=== PATIENT | female | born 1965 | race Caucasian/White ===

== ENCOUNTER 2017-02-10 11:12 | Observation (INO) | payer OTHER ==
[~2017-02-10] VITALS: Ht 175.3 cm; Wt 96.0 kg
[2017-02-10 11:23] VITALS: BP 183/122; PULSE 102; RESP 16; O2SAT 99
--- NOTE | 2017-02-10 11:26 | PD ---
HPI Chief Complaint: Fall Time Seen by Provider: 11:21 Travel History International Travel<30 days: No Contact w/Intl Traveler<30days: No History of Present Illness HPI 51-year-old female presents to the ED for evaluation of left-sided facial, left shoulder and left knee pain after mechanical fall. This happened just prior to arrival. Patient states that she was out walking, tripped and landed on the sidewalk, striking her head. She is unsure if she lost consciousness. She's been ambulatory since the accident. Pain rated 8/10, constant, no alleviating or exacerbating factors reported. The patient denies headache, dizziness, vision changes, neck pain, limitations to range of motion of the extremities. She is unsure of the date of her last tetanus immunization. No treatment attempted at home. [facility] Social History Tobacco Use: No Allergies-Medications (Allergen,Severity, Reaction): Coded Allergies: amoxicillin (Verified Allergy, Unknown, 02/10/17) Reported Meds & Prescriptions Reported Meds & Active Scripts Active Reported Claritin (Loratadine) 10 Mg Cap 10 Mg PO DAILY Plaquenil (Hydroxychloroquine Sulfate) 200 Mg Tab 400 Mg PO DAILY Take with food Cetirizine (Cetirizine HCl) 10 Mg Tab 10 Mg PO DAILY Amitriptyline (Amitriptyline HCl) 25 Mg Tab 25 Mg PO HS Fish Oil ([place]-3 Fatty Acids) 60 Mg-90 Mg-500 Mg Cap Flexeril (Cyclobenzaprine HCl) 10 Mg Tab 10 Mg PO TID Review of Systems Except as stated in HPI: all other systems reviewed are Neg Physical Exam Narrative GENERAL: Well-nourished, well-developed white female in no acute distress. A&O 4 SKIN: Warm and dry. Superficial abrasion of the left shoulder. Abrasion of the left knee. Edema and ecchymosis surrounding the left eye. Thorough evaluation reveals no edema, ecchymosis, abrasion, or laceration of the skin. HEAD: Normocephalic. Atraumatic. No raccoon eyes or mckeon sign. Tender to palpation of the left orbit. No tenderness to palpation of the skull. No bony step-offs. No malocclusion of the teeth. EYES: No scleral icterus. No injection or drainage. PERRLA. EOMI. ENT: Pearly mckinney tympanic membrane is bilaterally. Nasal mucosa is moist. Oropharynx without erythema, edema or exudate. NECK: Supple, trachea midline. No JVD or lymphadenopathy. No midline tenderness to palpation. Patient retains full, active, painless range of motion of the neck. CARDIOVASCULAR: Regular rate and rhythm without murmurs, gallops, or rubs. 2+ DP and radial pulses bilaterally. RESPIRATORY: Breath sounds clear and equal bilaterally. No accessory muscle use. GASTROINTESTINAL: Abdomen soft, non-tender, nondistended. + Bowel sounds MUSCULOSKELETAL: No cyanosis, or edema. Tender to palpation of the acromioclavicular joint of the left shoulder. Pain with attempted ROM. Good grid trimmer strength. Tender to palpation of the left patella. No patellar balloting noted. Patient is able to flex the left knee beyond 90 and extend the knee to 0. No other tenderness to palpation or limitations to range of motion of the joints of the upper and lower extremities. NEUROLOGICAL: Awake and alert. Cranial nerves II through XII intact. Motor and sensory grossly within normal limits. 5/5 muscle strength in all muscle groups. Normal speech. BACK: Nontender without obvious deformity. No CVA tenderness. No midline tenderness. Data Data Last Documented VS Vital Signs Date Time Temp Pulse Resp B/P (MAP) Pulse Ox O2 Delivery O2 Flow Rate FiO2 02/10/17 13:40 98.0 84 18 178/108 (131) 96 02/10/17 11:32 Room Air Orders Orders Ct Brain W/O Iv Contrast(Rout) (02/10/17 11:16) Ct Facial Bones W/O Iv Cont (02/10/17 11:16) Knee, Complete (4vws) (02/10/17 11:16) Shoulder, Complete (>2vws) (02/10/17 11:16) Ice/Cold Pack (02/10/17 11:16) Tetanus/Diphtheria Tox Adult (Tetanus/Di (02/10/17 11:30) Ondansetron Odt (Zofran Odt) (02/10/17 11:30) Acetamin-Hydrocod 325-10 Mg ([place] 10-32 (02/10/17 11:30) Wound Care (02/10/17 11:16) Iv Access Insert/Monitor (02/10/17 13:45) Dexamethasone Inj (Decadron Inj) (02/10/17 13:45) Cefazolin Inj (Ancef Inj) (02/10/17 14:00) Morphine Inj (Morphine Inj) (02/10/17 14:15) Admit Order (Ed Use Only) (02/10/17 14:16) Precautions (02/10/17 14:17) MDM Medical Decision Making Medical Screen Exam Complete: Yes Emergency Medical Condition: Yes Differential Diagnosis Contusion versus abrasion versus orbital fracture versus skull fracture versus ICH versus musculoskeletal pain versus patellar fracture versus shoulder separation versus other Narrative Course 51-year-old female presents to the ED for evaluation of left-sided facial, left shoulder and left knee pain after mechanical fall. This happened just prior to arrival. Patient states that she was out walking, tripped and landed on the sidewalk, striking her head. Questionable LOC. She's been ambulatory since the accident. The patient denies headache, dizziness, vision changes, neck pain , limitations to range of motion of the extremities. She is unsure of the date of her last tetanus immunization. Patient is tachycardic and hypertensive on presentation. Physical exam reveals significant periorbital edema and ecchymosis. PERRLA, EOMI. Gaze is symmetric. There are superficial abrasions of the left knee and shoulder with some associated TTP. Tetanus was updated. Ice packs were applied. Patient was administered PO Lortab and Zofran. CT of the facial bones reveals left orbital blowout fracture by radiology read. CT brain, XR left shoulder and knee unremarkable. I spoke with Dr. Gonzales, maxillofacial surgeon, who recommends that the patient be started on Decadron, IV antibiotics, admitted. He'll see the patient this evening and plans surgery tomorrow morning. I discussed this plan with the patient who was initially resistant. However, after a few moments with her she decided to stay. IV was established. Patient was administered steroids, Ancef. I spoke with the residents who agree to accept the patient to the medicine service under Dr. Lopez. Please see medicine notes for disposition. Anamaria Nathan Feb 10, 2017 11:26
[2017-02-10] MEDS ORDERED: ACETAMINOPHEN/HYDROcodone 325 MG/10 MG TAB PO ONE (11:30)
[2017-02-10] MEDS ORDERED: TETANUS/DIPHTHERIA TOXOID ADULT 0.5 ML VIAL IM ONE (11:30)
[2017-02-10] MEDS ORDERED: ONDANSETRON ODT 4 MG TAB PO ONE (11:30)
[2017-02-10 11:32] VITALS: BP 183/122; PULSE 102; RESP 16; O2SAT 99
[2017-02-10] MEDS ORDERED: FISH500C (11:50)
[2017-02-10] MEDS ORDERED: CYCL10TA PO (11:50)
[2017-02-10] MEDS ORDERED: PLAQ200T PO (11:50)
[2017-02-10] MEDS ORDERED: CETI10 PO (11:50)
[2017-02-10] MEDS ORDERED: AMIT25TA9 PO (11:50)
[2017-02-10] MEDS ORDERED: CLAR10CA3 PO (11:50)
--- NOTE | 2017-02-10 12:30 | RADRPT ---
EXAM DATE/TIME: 02/10/2017 12:10 [facility] COMPARISON: No previous studies available for comparison. INDICATIONS : Patient fell on left side of face RADIATION DOSE: 40.60 CTDIvol (mGy) MEDICAL HISTORY : None SURGICAL HISTORY : None. ENCOUNTER: Initial ACUITY: 1 day PAIN SCALE: 5/10 LOCATION: Left facial TECHNIQUE: Multiple contiguous axial images were obtained of the head. Using automated exposure control and adj ustment of the mA and/or kV according to patient size, radiation dose was kept as low as reasonably a chievable to obtain optimal diagnostic quality images. DICOM format image data is available electro nically for review and comparison. FINDINGS: CEREBRUM: The ventricles are normal for age. No evidence of midline shift, mass lesion, hemorrhage or acute in farction. No extra-axial fluid collections are seen. POSTERIOR FOSSA: The cerebellum and brainstem are intact. The 4th ventricle is midline. The cerebellopontine angle i s unremarkable. EXTRACRANIAL: Left-sided periorbital and supraorbital soft tissue swelling and hematoma are noted. Soft tissue air is identified in the extraconal space along the left lamina papyracea. The visualized portion of the left maxillary sinus is opacified with fluid. Nasal bone is grossly intact. SKULL: The calvaria is intact. No evidence of skull fracture. CONCLUSION: 1. No evidence of acute intracranial process. 2. Extraconal gas identified within the left orbit with associated opacification of the left maxillar y sinus which may indicate the presence of an orbital blowout fracture. Joe Wallace MD on February 10, 2017 at 12:19 Board Certified Radiologist. This report was verified electronically.
--- NOTE | 2017-02-10 12:32 | RADRPT ---
EXAM DATE/TIME: 02/10/2017 11:46 [facility] COMPARISON: No previous studies available for comparison. INDICATIONS : Fell today, pain and limited movement left shoulder, abrasion anterior left shoulder MEDICAL HISTORY : None. SURGICAL HISTORY : None. ENCOUNTER: Initial ACUITY: 1 day PAIN SCORE: 10/10 LOCATION: Left shoulder FINDINGS: Multiple view examination of the left shoulder demonstrates no evidence of fracture or dislocation. The glenohumeral and acromioclavicular joints are maintained. There is normal range of motion betwee n internal and external rotation. Bony mineralization is normal. CONCLUSION: No acute osseous injury. Quang Costa MD on February 10, 2017 at 12:30 Board Certified Radiologist. This report was verified electronically.
--- NOTE | 2017-02-10 12:35 | RADRPT ---
EXAM DATE/TIME: 02/10/2017 11:51 [facility] COMPARISON: No previous studies available for comparison. INDICATIONS : Fell today, abrasion left anterior knee, pain only on anterior side of left knee MEDICAL HISTORY : None. SURGICAL HISTORY : None. ENCOUNTER: Initial ACUITY: 1 day PAIN SCORE: 6/10 LOCATION: Left knee FINDINGS: Four view examination of the left knee demonstrates no evidence of fracture or dislocation. Bony min eralization is normal. The articular surfaces are intact. The suprapatellar soft tissues have a nor mal configuration. CONCLUSION: Negative exam. No fracture or effusion. Quang Costa MD on February 10, 2017 at 12:31 Board Certified Radiologist. This report was verified electronically.
--- NOTE | 2017-02-10 12:37 | RADRPT ---
EXAM DATE/TIME: 02/10/2017 12:10 [facility] COMPARISON: No previous studies available for comparison. INDICATIONS : Patient fell on left side of face RADIATION DOSE: 49.35 CTDIvol (mGy) MEDICAL HISTORY : None SURGICAL HISTORY : None. ENCOUNTER: Initial ACUITY: 1 day PAIN SCORE: 8/10 LOCATION: Left facial TECHNIQUE: Volumetric scanning of the facial bones was performed. Using automated exposure control and adjustme nt of the mA and/or kV according to patient size, radiation dose was kept as low as reasonably achiev able to obtain optimal diagnostic quality images. DICOM format image data is available electronicall y for review and comparison. FINDINGS: There is a left orbital blowout fracture with depression of small orbital floor fracture fragments sl ightly toward the underlying maxillary sinus. There is blood within the sinus. There is no evidence o f entrapment of orbital contents. The orbital rim is intact. The globe is intact. Moderate periorbita l and supraorbital soft tissue swelling. Contralateral right orbit is intact and unremarkable. The facial bones are otherwise intact. Mandible and temporomandibular joints are unremarkable. CONCLUSION: Left orbital floor blowout fracture Noe Espinal MD on February 10, 2017 at 12:32 Board Certified Radiologist. This report was verified electronically.
[2017-02-10 13:40] VITALS: BP 178/108; PULSE 84; RESP 18; TEMP 98; O2SAT 96
[2017-02-10] MEDS ORDERED: DEXAMETHASONE SOD PHOS 4 MG/ML VIAL IV PUSH ONE (13:45)
[2017-02-10] MEDS ORDERED: MORPHINE SULFATE 4 MG/ML INJ IV PUSH ONE (14:15)
--- NOTE | 2017-02-10 14:19 | HHI.HP ---
[facility] Service Family Medicine Primary Care Physician Zechariah Boucher MD Admission Diagnosis left orbital blowout fracture Diagnoses: International Travel<30 Days: No Contact w/Intl Traveler<30days: No Known Affected Area: No History of Present Illness Patient is a very pleasant 51 year old woman here following a mechanical fall while walking outside earlier today. She is found to have a left orbital floor blowout fracture on maxillofacial CT. She states she was outside walking on the sidewalk and tripped and land on the concrete. She states she believes the first thing that hit the ground was her left knee followed by her left shoulder and left-sided face. She denies LOC. She denies issues with her gait prior to the mechanical fall or any other focal neuro deficit. Denies issues with her vision prior to the fall. She states she actually did not have much pain around her left orbit following the fall. Currently she endorses 5/10 pain which she describes mostly as pressure. She denies headache. She is able to open her left eye and denies any blurry vision. Denies photosensitivity, floaters, or abnormalities with color vision or light perception. She denies any significant pain or discomfort of her left knee or shoulder. Denies restriction of ROM of left knee. Review of Systems Constitutional: DENIES: Fever Eyes: DENIES: Blurred vision, Diplopia, Photosensitivity, Double Vision Ears, nose, mouth, throat: DENIES: Ear Pain, Toothache Respiratory: DENIES: Cough, Sputum production, Shortness of breath Cardiovascular: DENIES: Chest pain Gastrointestinal: DENIES: Abdominal pain, Constipation, Diarrhea, Nausea, Vomiting Genitourinary: DENIES: Dysuria Neurologic: DENIES: Abnormal gait, Headache, Localized weakness, Paresthesias, Seizures, Poor Balance Past Family Social History Past Medical History SLE diagnosed about 3 years ago Allergies Past Surgical History Breast reduction surgery Bunionectomy Novasure ablation about 8 years ago Allergies: Coded Allergies: amoxicillin (Verified Allergy, Unknown, 02/10/17) Family History Father: Parkinsons, prostate cancer, HTN, still alive Mother: from lung cancer at ~56yo Social History Tobacco: never Etoh: denies Illicit drug use: denies Physical Exam Vital Signs Vital Signs Date Time Temp Pulse Resp B/P (MAP) Pulse Ox O2 Delivery O2 Flow Rate FiO2 02/10/17 13:40 98.0 84 18 178/108 (131) 96 02/10/17 11:32 102 16 183/122 (142) 99 Room Air 02/10/17 11:31 102 16 99 Room Air 02/10/17 11:23 102 16 183/122 (142) 99 Physical Exam GENERAL: NAD, lying comfortably in bed NEURO: Alert. Normal speech. facetor tested and intact. Motor grossly normal. Sensation intact throughout. 5/5 strength throughout. Gait not tested. SKIN: Warm and dry. Superficial abrasion measuring ~2-3cm located inferior to left patella, without drainage, pus, or bleeding. Smaller superficial abrasion along left anterior shoulder without active bleeding or drainage. HEAD: Normocephalic. Atraumatic. EYES: PERRL. EOMI. No scleral icterus. Significant ecchymoses involving left eyelid with significant edema, no fluctuance, bruising extending laterally into left forehead. Visual acuity tested, no deficits in vision. Peripheral vision intact in all thomas in bilateral eyes. ENT: No nasal drainage. Moist mucous membranes. No oral ulcers or lesions. NECK: Supple, trachea midline. No JVD or lymphadenopathy. CARDIOVASCULAR: Regular rate and rhythm without murmurs, rubs, or gallops. Peripheral pulses 2+. Capillary refill < 2 seconds. RESPIRATORY: Breath sounds clear to auscultation and equal bilaterally, without wheezes, rales, or rhonchi. No accessory muscle use. GASTROINTESTINAL: Abdomen soft, nontender, nondistended, normal BS. No organomegaly or masses. No rebound tenderness. No guarding. MUSCULOSKELETAL: No lower extremity edema. Normal range of motion. BACK: Nontender without obvious deformity. Imaging Last 72 hours Impressions Shoulder X-Ray 02/10/17 1116 Signed Impressions: Service Date/Time: Friday, February 10, 2017 11:46 - CONCLUSION: No acute osseous injury. Quang Costa MD Maxillofacial CT 02/10/17 1116 Signed Impressions: Service Date/Time: Friday, February 10, 2017 12:10 - CONCLUSION: Left orbital floor blowout fracture Noe Espinal MD Knee X-Ray 02/10/17 1116 Signed Impressions: Service Date/Time: Friday, February 10, 2017 11:51 - CONCLUSION: Negative exam. No fracture or effusion. Quang Costa MD Head CT 02/10/17 1116 Signed Impressions: Service Date/Time: Friday, February 10, 2017 12:10 - CONCLUSION: 1. No evidence of acute intracranial process. 2. Extraconal gas identified within the left orbit with associated opacification of the left maxillary sinus which may indicate the presence of an orbital blowout fracture. Joe Wallace MD Caprini VTE Risk Assessment Caprini VTE Risk Assessment: No/Low Risk (score <= 1) Caprini Risk Assessment Model Point Value = 1 Point Value = 2 Point Value = 3 Point Value = 5 Age 41-60 Minor surgery BMI > 25 kg/m2 Swollen legs Varicose veins or History of unexplained or recurrent spontaneous Oral contraceptives or hormone replacement Sepsis (< 1 month) Serious lung disease, including pneumonia (< 1 month) Abnormal pulmonary function Acute myocardial infarction Congestive heart failure (< 1 month) History of inflammatory bowel disease Medical patient at bed rest Age 61-74 Arthroscopic surgery Major open surgery (> 45 min) Laparoscopic surgery (> 45 min) Malignancy Confined to bed (> 72 hours) Immobilizing plaster cast Central venous access Age >= 75 History of VTE Family history of VTE Factor V Leiden Prothrombin [id number] Lupus anticoagulant Anticardiolipin antibodies Elevated serum homocysteine Heparin-induced thrombocytopenia Other congenital or acquired thrombophilia Stroke (< 1 month) Elective arthroplasty Hip, pelvis, or leg fracture Acute spinal cord injury (< 1 month) Prophylaxis Regimen Total Risk Factor Score Risk Level Prophylaxis Regimen 0-1 Low Early ambulation 2 Moderate Order ONE of the following: *Sequential Compression Device (SCD) *Heparin 5000 units SQ BID 3-4 Higher Order ONE of the following medications: *Heparin 5000 units SQ TID *Enoxaparin/Lovenox 40 mg SQ daily (WT < 150 kg, CrCl > 30 mL/min) *Enoxaparin/Lovenox 30 mg SQ daily (WT < 150 kg, CrCl > 10-29 mL/min) *Enoxaparin/Lovenox 30 mg SQ BID (WT < 150 kg, CrCl > 30 mL/min) AND/OR *Sequential Compression Device (SCD) 5 or more Highest Order ONE of the following medications: *Heparin 5000 units SQ TID (Preferred with Epidurals) *Enoxaparin/Lovenox 40 mg SQ daily (WT < 150 kg, CrCl > 30 mL/min) *Enoxaparin/Lovenox 30 mg SQ daily (WT < 150 kg, CrCl > 10-29 mL/min) *Enoxaparin/Lovenox 30 mg SQ BID (WT < 150 kg, CrCl > 30 mL/min) AND *Sequential Compression Device (SCD) Assessment and Plan Assessment and Plan 51 year old female being admitted with a left orbital floor blowout fracture following a mechanical fall. Code Status Full code Discussed Condition With dw Dr. Lopez Problem List: (1) Fracture of orbital floor ICD Codes: S02.30XA - Fracture of orbital floor, unspecified side, initial encounter for closed fracture Status: Acute Plan: - Maxillofacial CT showing left orbital floor blowout fracture - Will place consult for oromaxillofacial surgery, Dr. 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 Plan: Symptoms stable Continue home Plaquenil (3) Nutrition, metabolism, and development symptoms ICD Codes: R63.8 - Other symptoms and signs concerning food and fluid intake Status: Acute Plan: Fluids: as above, NS at 140 cc/hr at MN Electrolytes: WNL Nutrition: regular diet today, NPO after MN DVT ppx: b/l SCDs, holding chemical anticoagulation ahead of surgery tomorrow Physician Certification 2 Midnight Certification Type: Admission for Inpatient Services Order for Inpatient Services The services are ordered in accordance with Medicare regulations or non- Medicare payer requirements, as applicable. In the case of services not specified as inpatient-only, they are appropriately provided as inpatient services in accordance with the 2-midnight benchmark. Estimated LOS (days): 2 days is the estimated time the patient will need to remain in the hospital, assuming treatment plan goals are met and no additional complications. Post-Hospital Plan: Home Maverick Luis MD R2 Feb 10, 2017 14:19
[2017-02-10] MEDS ORDERED: SODIUM CHLORIDE 0.9% FLUSH 10 ML FLUSH IV FLUSH PRN (14:45)
[2017-02-10] MEDS ORDERED: NALOXONE HCL 0.4 MG/ML AMP IV PUSH PRN (14:45)
--- NOTE | 2017-02-10 14:55 | HHI.FPPN ---
Subjective Remarks Pt. seen and examined, discussed with Dr. Luis. This is a 51 yo female with lupus who was walking this a.m. and due to unsteadiness fell, sustaining a blow-out fracture of the left orbital floor, as well as abrasions left shoulder and left knee. No loss of consciousness. She takes Plaquenil, allergy meds including fluticasone, claritin and zyrtec. Significant seasonal allergies and is allergic to apples. She is originally from [place]. Her is with her. Please refer to H&P for this admission for additional past, family, social hx and ROS at the time of admission. Objective Vitals Vital Signs Date Time Temp Pulse Resp B/P (MAP) Pulse Ox O2 Delivery O2 Flow Rate FiO2 02/10/17 13:40 98.0 84 18 178/108 (131) 96 02/10/17 11:32 102 16 183/122 (142) 99 Room Air 02/10/17 11:31 102 16 99 Room Air 02/10/17 11:23 102 16 183/122 (142) 99 Imaging Last 24 hours Impressions Shoulder X-Ray 02/10/17 1116 Signed Impressions: Service Date/Time: Friday, February 10, 2017 11:46 - CONCLUSION: No acute osseous injury. Quang Costa MD Maxillofacial CT 02/10/17 1116 Signed Impressions: Service Date/Time: Friday, February 10, 2017 12:10 - CONCLUSION: Left orbital floor blowout fracture Noe Espinal MD Knee X-Ray 02/10/17 1116 Signed Impressions: Service Date/Time: Friday, February 10, 2017 11:51 - CONCLUSION: Negative exam. No fracture or effusion. Quang Costa MD Head CT 02/10/17 1116 Signed Impressions: Service Date/Time: Friday, February 10, 2017 12:10 - CONCLUSION: 1. No evidence of acute intracranial process. 2. Extraconal gas identified within the left orbit with associated opacification of the left maxillary sinus which may indicate the presence of an orbital blowout fracture. Joe Wallace MD Objective Remarks O. CONSTITUTIONAL/GEN: normally nourished, in some distress with pain from orbital fracture. EYES: Significant ecchymosis left upper lid. ENT: Mouth and pharynx normal. NECK: thyroid midline, carotids symmetrical. LUNGS: clear A-P, respiratory effort is normal. CARDIOVASCULAR: RR without murmur or gallop. No significant edema. GI/ABD: soft without masses, without organomegaly. BS + NEURO: No focal deficits. SKIN: color normal, no rashes noted. HEME/LYMPH: no bruising, petechia or significant adenopathy MUSC: Extremities are normal in appearance. PSYCH/MENTAL STATUS: Alert and oriented x 3. A/P Assessment and Plan 51 yo female with blowout fracture left orbital floor and lupus. See orders. Dr. Gonzales has been consulted. Discharge Planning Case management consult. Attending Attestation Patient seen and examined. Case reviewed and discussed with the resident team. Agree with plan of care as discussed with me and documented in the resident note. Charline Lopez MD Feb 10, 2017 14:55
[2017-02-10 15:28] LABS: AUTOMATED NEUTROPHIL # 8.9 TH/MM3 (1.8-7.7); BASOPHIL # 0.1 TH/MM3 (0-0.2); BASOPHIL % 0.5 % (0.0-2.0); EOSINOPHIL % 0.4 % (0.0-4.0); HEMATOCRIT 43.5 % (35.0-46.0); HEMO FLAGS DIFF FINAL; LYMPH % 19.4 % (9.0-44.0); LYMPHOCYTE # 2.3 TH/MM3 (1.0-4.8); MEAN CELL VOLUME 85.3 FL (80.0-100.0); MEAN CORPUSCULAR HEMOGLOBIN 28.4 PG (27.0-34.0); MEAN CORPUSCULAR HGB CONC 33.3 % (32.0-36.0); MONO % 5.1 % (0.0-8.0); NEUT % 74.6 % (16.0-70.0); PLATELET COUNT 235 TH/MM3 (150-450); RED BLOOD COUNT 5.09 MIL/MM3 (4.00-5.30); WHITE BLOOD COUNT 11.9 TH/MM3 (4.0-11.0)
[2017-02-10 15:37] LABS: APTT (PATIENT) 30.6 SEC (24.3-30.1); INTERNATIONAL NORMALIZED RATIO 0.9 RATIO; PROTHROMBIN TIME - PATIENT 10.1 SEC (9.8-11.6)
[2017-02-10 15:44] LABS: BICARBONATE 33.4 MEQ/L (21.0-32.0); POTASSIUM 3.8 MEQ/L (3.5-5.1)
[2017-02-10 16:00] VITALS: BP 155/86; PULSE 81; RESP 20; TEMP 96.9; O2SAT 96
[2017-02-10] MEDS: SODIUM CHLORIDE 0.9% FLUSH 10 ML FLUSH IV FLUSH SCH ×2 (16:00→20:51)
[2017-02-10] MEDS ORDERED: MAGNESIUM HYDROXIDE SUSP 30 ML CUP PO PRN (16:00)
[2017-02-10] MEDS ORDERED: ONDANSETRON HCL 4 MG/2 ML VIAL IVP PRN (16:00)
[2017-02-10] MEDS ORDERED: ACETAMINOPHEN 325 MG TAB PO PRN (16:00)
[2017-02-10] MEDS: HYDROXYCHLOROQUINE SULFATE 200 MG TAB PO SCH (16:00)
[2017-02-10 16:05] VITALS: BP 142/84
[2017-02-10] MEDS: ACETAMINOPHEN/HYDROcodone 325 MG/5 MG TAB PO PRN ×2 (16:22→20:50)
[2017-02-10 20:00] VITALS: BP 148/80; PULSE 101; RESP 18; TEMP 96.8; O2SAT 93
[2017-02-10] MEDS: DOCUSATE SODIUM 50 MG/SENNA 8.6 MG TAB PO SCH (20:51)
[2017-02-10] MEDS: AMITRIPTYLINE HCL 25 MG TAB PO SCH (20:51)
--- NOTE | 2017-02-10 21:44 | MB ---
cc: ABUNDIOVERNONKM DMD (Fax to Dr. Gonzales's office) DATE OF CONSULTATION 02/10/17 REASON FOR CONSULTATION Left orbital floor blowout fracture. HISTORY OF PRESENT ILLNESS This is a 51-year-old female who earlier this afternoon tripped and fell and she is admitted to the hospital today. I have seen and examined this patient this afternoon. Her is at bedside. She denies any loss of consciousness. She is alert, awake and oriented x3 in no acute distress. She denies any pain in the eye or around the eye. Denies any gross facial pain. Denies any neck pain. Denies any fever, chills, nausea, vomiting, any shortness of breath and difficulty breathing. Reports the vision appears stable at this point. VITAL SIGNS: Temperature 96.9, pulse is 84, respiration rate 18, blood pressure is 142/84 with oxygen saturation of 97% PAST MEDICAL HISTORY The patient reports being positive for CRUZITO. Questionable lupus. Also seasonal allergies which gets her really swollen on her face. PAST SURGICAL HISTORY 1. Breast surgery. 2. Splenectomy 3. Novasure ablation 8 years ago. ALLERGIES AMOXICILLIN. SOCIAL HISTORY Denies any alcohol, any tobacco or any illicit drug use. PHYSICAL EXAMINATION HEENT: Pupils equal, round, react to light and accommodation. Extraocular movements appear to be intact. She has left periorbital edema and ecchymosis that is noted. Could be having a slight hindrance in the looking on the left supraorbital region and secondary to the swelling on the superior aspect of the upper eyelid. Tenderness on palpation of the facial bones on the left side of the forehead and then left face. Left-sided V2 paresthesia that is noted. No crepitus that is noted. The maxilla mandible appears stable. Bite appears to be in occlusion. Positive range of movement of the neck. No neck tenderness noted. IMAGING STUDIES CT scan of the facial bones shows a left orbital floor blowout fracture. There is air/fluid/blood in the left maxillary sinus. LABORATORY DATA White count is 11.9, H&H is 14.5, 43.5 with platelets of 235. PT 10.1, INR 0.9 with PTT of 30.6. IMPRESSION AND PLAN This is a 51-year-old female who is status post a trip and fall earlier this afternoon landing on her face and hands, now resulting in a left orbital floor blowout fracture. She is going to require reconstruction left orbital floor fracture with the mesh/implant. Benefits, risks, indication of the procedure, procedure in detail and the options of no treatment were all discussed with this patient. Risks are not limited to any postop pain, infection, bleeding, damage to the adjacent soft tissue, hard tissue, anesthesia complications which include , visual disturbances including blindness, malunion, nonunion of the implant, entropion, ectropion, enophthalmos, exophthalmos, further surgeries as required. All questions and concerns were addressed and discussed with her and her who is at bedside. Km Gonzales DMD RRT/ /7:27 PM /9:15 PM MTDMelody
[2017-02-10] MEDS: MORPHINE SULFATE 4 MG/ML INJ IV PUSH PRN (22:54)
[2017-02-10] MEDS: SODIUM CHLOR 0.9% 1000 ML INJ 1,000 ML IV SCH (22:54)
[2017-02-11] VITALS: BP 127/73; PULSE 87; RESP 18; TEMP 97.2; O2SAT 95
[2017-02-11] MEDS ORDERED: LACTATED RINGER'S 1000 ML IV PRN (01:30)
[2017-02-11] MEDS ORDERED: SODIUM CHLORID 0.9% 500 ML IV PRN (01:30)
[2017-02-11] MEDS: ACETAMINOPHEN/HYDROcodone 325 MG/5 MG TAB PO PRN ×2 (02:30→11:53)
[2017-02-11] MEDS: MORPHINE SULFATE 4 MG/ML INJ IV PUSH PRN ×4 (05:37→23:18)
[2017-02-11] MEDS: SODIUM CHLOR 0.9% 1000 ML INJ 1,000 ML IV SCH ×3 (06:01→20:37)
[2017-02-11] MEDS: ACETAMINOPHEN/HYDROcodone 325 MG/10 MG TAB PO PRN ×2 (07:51→20:47)
[2017-02-11] MEDS: DOCUSATE SODIUM 50 MG/SENNA 8.6 MG TAB PO SCH ×2 (07:52→20:37)
[2017-02-11] MEDS: HYDROXYCHLOROQUINE SULFATE 200 MG TAB PO SCH (07:52)
[2017-02-11] MEDS: SODIUM CHLORIDE 0.9% FLUSH 10 ML FLUSH IV FLUSH SCH ×2 (07:54→20:37)
[2017-02-11 08:00] VITALS: BP 117/67; PULSE 81; RESP 19; TEMP 97.1; O2SAT 95
--- NOTE | 2017-02-11 09:20 | EKG ---
Date Performed: 02/11/2017 Time Performed: 05:45:36 PTAGE: 51 years EKG: Sinus rhythm . Normal ECG NO PREVIOUS TRACING DOCTOR: Kelton Sands Interpretating Date/Time 02/11/2017 09:18:41
--- NOTE | 2017-02-11 11:58 | HHI.FPPN ---
Subjective Remarks Patient is doing okay this morning. No new visual complaints at this time. No loss of vision. Surgery anticipated for 4 pm this afternoon. Denies fevers, chills, n/v/d, sob, cp. Pain well controlled with medication. (Benedict Lopez MD, R3) Objective Vitals Vital Signs Date Time Temp Pulse Resp B/P (MAP) Pulse Ox O2 Delivery O2 Flow Rate FiO2 02/11/17 09:51 18 02/11/17 08:51 18 02/11/17 08:00 97.1 81 19 117/67 (84) 95 02/11/17 00:00 97.2 87 18 127/73 (91) 95 02/10/17 20:00 96.8 101 18 148/80 (102) 93 02/10/17 17:22 18 02/10/17 16:05 84 18 142/84 (103) 97 02/10/17 16:00 96.9 81 20 155/86 (109) 96 02/10/17 13:40 98.0 84 18 178/108 (131) 96 I/O 02/10/17 02/10/17 02/10/17 02/11/17 02/11/17 02/11/17 07:00 15:00 23:00 07:00 15:00 23:00 Intake Total 1000 ml 0 ml Balance 1000 ml 0 ml Intake Oral 0 ml IV Total 1000 ml # Voids 2 (Benedict Lopez MD, R3) Result Diagram: 02/10/17 1430 02/10/17 1430 Objective Remarks O. CONSTITUTIONAL/GEN: normally nourished, in some distress with pain from orbital fracture. EYES: EOM intact. Left periorbital edema and ecchymosis. ENT: Mouth and pharynx normal. NECK: thyroid midline, carotids symmetrical. LUNGS: clear A-P, respiratory effort is normal. CARDIOVASCULAR: RR without murmur or gallop. No significant edema. GI/ABD: soft without masses, without organomegaly. BS + NEURO: No focal deficits. SKIN: color normal, no rashes noted. HEME/LYMPH: no bruising, petechia or significant adenopathy MUSC: Extremities are normal in appearance. PSYCH/MENTAL STATUS: Alert and oriented x 3. (Benedict Lopez MD, R3) A/P Assessment and Plan 51 year old female being admitted with a left orbital floor blowout fracture following a mechanical fall. Maxilofacial surgery consulted. Plan for surgery today at 4pm Discharge Planning Pending surgery (Benedict Lopez MD, R3) Attending Attestation Patient seen and examined. Case reviewed and discussed with the resident team. Agree with plan of care as discussed with me and documented in the resident note. (Charline Lopez MD) Problem List: (1) Fracture of orbital floor ICD Codes: S02.30XA - Fracture of orbital floor, unspecified side, initial encounter for closed fracture Status: Acute Plan: - Maxillofacial CT showing left orbital floor blowout fracture - Consult oromaxillofacial surgery - Surgery today - Pain control with [place] 5/325 prn pain 3-5, [place] 10/325 prn pain 6-10, morphine 4mg IV prn breakthrough pain - NPO until after surgery -NS maintenance (2) Lupus ICD Codes: L93.0 - Discoid lupus erythematosus Status: Chronic Plan: Symptoms stable Continue home Plaquenil (3) Nutrition, metabolism, and development symptoms ICD Codes: R63.8 - Other symptoms and signs concerning food and fluid intake Status: Acute Plan: Fluids: as above, NS at 140 cc/hr at [place] Electrolytes: WNL Nutrition:NPO until after surgery DVT ppx: b/l SCDs, holding chemical anticoagulation until cleared by surgery (Benedict Lopez MD, R3) Benedict Lopez MD, R3 Feb 11, 2017 11:58 Charline Lopez MD Feb 11, 2017 12:08
[2017-02-11 12:00] VITALS: BP 122/75; PULSE 72; RESP 19; TEMP 97; O2SAT 96
[2017-02-11] MEDS ORDERED: PROPOFOL 200 MG/20 ML AMP IV ONE (12:00)
[2017-02-11] MEDS ORDERED: DEXAMETHASONE SOD PHOS 4 MG/ML VIAL IV ONE (12:00)
[2017-02-11] MEDS ORDERED: SODIUM CHLORIDE 0.9% 20 ML VIAL IV ONE (12:00)
[2017-02-11] MEDS ORDERED: LIDOCAINE HCL 1% PF 5 ML SYRINGE OTHER ONE (12:00)
[2017-02-11] MEDS ORDERED: LABETALOL HCL 100 MG/20 ML VIAL IV ONE (12:00)
[2017-02-11] MEDS ORDERED: SODIUM CHLOR 0.9% 250 ML INJ 250 ML IV ONE (12:00)
[2017-02-11] MEDS ORDERED: ROCURONIUM INJ 50 MG/5 ML SYRINGE IV PUSH ONE (12:00)
[2017-02-11] MEDS ORDERED: hydrALAZINE HCL 20 MG/ML VIAL IV ONE (12:00)
[2017-02-11] MEDS ORDERED: NEOSTIGMINE 3 MG/3 ML SYR IV ONE (12:00)
[2017-02-11] MEDS ORDERED: ONDANSETRON HCL 4 MG/2 ML VIAL IV ONE (12:00)
[2017-02-11] MEDS ORDERED: GLYCOPYRROLATE 1 MG/5 ML SYRINGE IV PUSH ONE (12:00)
[2017-02-11] MEDS ORDERED: MIDAZOLAM HCL 2 MG/2 ML VIAL IV ONE (12:00)
[2017-02-11 12:22] LABS: BASOPHIL % 0.2 % (0.0-2.0); HEMO FLAGS DIFF FINAL; LYMPH % 14.6 % (9.0-44.0); LYMPHOCYTE # 2.4 TH/MM3 (1.0-4.8); MEAN CELL VOLUME 86.8 FL (80.0-100.0); MEAN CORPUSCULAR HEMOGLOBIN 28.9 PG (27.0-34.0); MEAN CORPUSCULAR HGB CONC 33.3 % (32.0-36.0); MONO % 5.3 % (0.0-8.0); NEUT % 79.9 % (16.0-70.0); PLATELET COUNT 231 TH/MM3 (150-450); RED CELL DISTRIBUTION WIDTH 12.7 % (11.6-17.2); WHITE BLOOD COUNT 16.3 TH/MM3 (4.0-11.0)
[2017-02-11 12:49] LABS: POTASSIUM 3.7 MEQ/L (3.5-5.1)
[2017-02-11 16:00] VITALS: BP 163/83; PULSE 70; RESP 20; TEMP 96.9; O2SAT 97
[2017-02-11] MEDS ORDERED: LIDOCAINE 2%/EPINEPHrine PF 1:200,000 20ML SDV ONE (16:17)
[2017-02-11] MEDS ORDERED: BALANCED SALT SOLN OPHT IRRIG 15 ML BTL ONE (16:18)
[2017-02-11] MEDS ORDERED: CLINDAMYCIN PHOS 600 MG/4 ML VIAL ONE (16:39)
[2017-02-11] MEDS ORDERED: DO NOT ADM ANY ANTICOAGULANT DRUGS PRN (18:06)
[2017-02-11] MEDS ORDERED: *ONDANSETRON 4 MG VIAL PERIprocedural Use ONLY ONE (18:10)
--- NOTE | 2017-02-11 18:13 | HHI.PR ---
Immediate Post Op Note Procedure Date: Feb 11, 2017 Pre Op Diagnosis: left orbital floor blowout fracture Post Op Diagnosis: grace Surgeon: Brock Gonzales [employer] Supervisor(s): bentley dodd Procedure: reconstruction of left orbital floor blowout fracture with KLS mesh Complications: none Specimen(s) removed: none Estimated blood loss: 2cc Anesthesia: General, Local (2%lidocaine with 1:200,000 epi 1cc) Drains: None Patient to: PACU Patient Condition: Good Implant/Devices: SEE IMPLANT LOG (if applicable) Date/Time of Procedure: SEE SURGICAL CARE RECORD Brock Gonzales DMD Feb 11, 2017 18:13
[2017-02-11] MEDS: methylPREDNISolone SOD SUCC 125 MG/2 ML VIAL IV SCH (19:00)
[2017-02-11] MEDS ORDERED: *PROMETHAZINE 25 MG/ML VIAL PERIprocedural use ONLY ONE (19:06)
[2017-02-11] MEDS: AMITRIPTYLINE HCL 25 MG TAB PO SCH (20:37)
[2017-02-11 20:48] VITALS: BP 116/60; PULSE 78; RESP 18; TEMP 97.6; O2SAT 95
[2017-02-12 00:20] VITALS: BP 124/69; PULSE 93; RESP 17; TEMP 97.2; O2SAT 91
[2017-02-12] MEDS ORDERED: CLINDAMYCIN INJ 600 MG in SODIUM CHLORIDE 0.9% INJ 50 ML IV SCH (01:00)
[2017-02-12] MEDS: SODIUM CHLOR 0.9% 1000 ML INJ 1,000 ML IV SCH ×2 (02:41→09:58)
[2017-02-12] MEDS: ACETAMINOPHEN/HYDROcodone 325 MG/10 MG TAB PO PRN ×3 (02:41→11:11)
[2017-02-12] MEDS: methylPREDNISolone SOD SUCC 125 MG/2 ML VIAL IV SCH (02:41)
[2017-02-12 05:00] VITALS: BP 119/67; PULSE 70; RESP 17; TEMP 96.6; O2SAT 93
[2017-02-12] MEDS: MORPHINE SULFATE 4 MG/ML INJ IV PUSH PRN ×2 (05:34→14:25)
--- NOTE | 2017-02-12 06:12 | MP ---
cc: ABUNDIOKM RYDER DMD DATE OF PROCEDURE February 11, 2017 PREOPERATIVE DIAGNOSIS Left orbital floor blowout fracture. POSTOPERATIVE DIAGNOSIS Left orbital floor blowout fracture. PROCEDURE Reconstruction of the left orbital floor blowout fracture with KLS mesh. ANESTHESIA General, also 2% lidocaine with 1:200,000 epinephrine, approximately [address] Gonzales. SUPERVISOR STATEMENT CLERKS Sae Ferrera COMPLICATIONS None. SPECIMENS None. ESTIMATED BLOOD LOSS Approximately 2 cc. DISPOSITION The patient tolerated the procedure well, was extubated and taken to the PACU. INDICATIONS FOR PROCEDURE This is a 51-year female who is status post a trip and fall yesterday resulting in her having this left orbital floor blowout fracture. She is going to need an orbital floor reconstruction. Benefits, risks and indications of the procedure, procedure in detail and the options of no treatment including alternatives were discussed with this patient. The risks are not limited to any postop pain, infection, bleeding, damage to the adjacent soft tissue, hard tissue, anesthesia complications, visual disturbances which includes blindness, entropion, ectropion, endophthalmos, exophthalmos, further surgeries as required in the future. All questions and concerns were addressed. Consent is signed in the chart. PROCEDURE DETAILS The patient was met perioperatively. The left side of the face was marked. All questions and concerns were addressed for the patient. The patient was taken to operating room #3, placed on the table in the supine position. She was intubated orally. All pressure points were padded. Both the eyes had lubrication placed by Anesthesia and then the right eye was taped. At this time a time-out was taken to identify the patient, the site, the procedure. Surgeon and all were in agreement. Betadine prep was done on the left side of the face. Now the patient was draped in normal sterile fashion. The local anesthetic with 2% lidocaine with 1:200 epinephrine was injected on the lower eyelid region. A 2-0 silk suture was placed through the lower eyelid/tarsal region after it was everted. Once this was done, we could help now to vilma the lower eyelid. Using a transconjunctival approach, used a Chucky to first protect the globe and palpate the rim and also used the periosteal elevator to palpate the rim. Then used the transconjunctival approach to go through layers and then used the Kitner to separate the layers and then again down used the Bovie which was used to go through the layers. Once again used the Bovie to go down to the rim. Once I encountered the rim, went medial and laterally. Then used a Molt elevator to gently find the periosteum and then reflect off the periosteum going on the floor, going posteriorly and inferiorly. The Chucky retractor was removed and a malleable retractor was used now. I could clearly see the orbital floor fracture. Started lifting up the contents of the floor and then I used a single-ended skin hook, went underneath where the opening was and hooked up the orbital floor and then pulled it up. There was good anatomic alignment of this fracture site at this point. Medial and lateral dissections with good stability that is noted at this point. No gross herniation of any content that I could see at this point. A KLS resorbable mesh was contoured into position and placed over the floor of the left orbit. At this point a Richter forceps was used to do a forced duction test. No entrapment is noted. Put the vein retractor back in which was already used previously to help vilma the lower eyelid and hold that into position and then a drill was used to help facilitate placement of a 5-mm screw on the orbital rim to help hold the plate into position. Came back again and rechecked, did a forced duction test again, no entrapment is noted. Removed the 2-0 silk suture which was used to vilma the lid, and irrigated both the eyes with BSS solution. The patient tolerated the procedure well. No complications noted. Extubated and taken to the PACU. All sponge and needle counts were all accounted for. Km Gonzales DMD PUBLIC SERVICES ASSISTANT/SSB /6:06 PM /5:49 AM FABRIZIO
[2017-02-12 08:00] VITALS: BP 130/71; PULSE 75; RESP 17; TEMP 97.5; O2SAT 97
[2017-02-12] MEDS ORDERED: methylPREDNISolone ACETATE 80 MG/ML VIAL IM ONE (08:00)
[2017-02-12] MEDS: SODIUM CHLORIDE 0.9% FLUSH 10 ML FLUSH IV FLUSH SCH (09:00)
[2017-02-12] MEDS: HYDROXYCHLOROQUINE SULFATE 200 MG TAB PO SCH (09:56)
[2017-02-12] MEDS: DOCUSATE SODIUM 50 MG/SENNA 8.6 MG TAB PO SCH (09:57)
--- NOTE | 2017-02-12 10:14 | HHI.FPPN ---
Subjective Remarks No acute events overnight. Pt sitting up in bed, doing well. Pt tolerated procedure well. Pain well-controlled. Doing well on liquid diet, will advance to soft-diet. She has not passed gas or had a BM. She complains that her throat is sore, discusser that most likely due to intubation during anesthesia. Pt also complains of not receiving enough sleep and would like to stay until the afternoon. Afebrile. VSS. She denies vision changes, CP, SOB, calf pain, abdominal pain, and N/V. (Madeline Waldrop MD R1) Objective Vitals Vital Signs Date Time Temp Pulse Resp B/P (MAP) Pulse Ox O2 Delivery O2 Flow Rate FiO2 02/12/17 08:00 97.5 75 17 130/71 (90) 97 02/12/17 05:00 96.6 70 17 119/67 (84) 93 02/12/17 00:20 97.2 93 17 124/69 (87) 91 02/11/17 20:48 97.6 78 18 116/60 (78) 95 02/11/17 19:35 79 16 131/62 (85) 96 Nasal Cannula 2 02/11/17 19:15 77 16 132/63 (86) 97 Nasal Cannula 2 02/11/17 19:00 75 16 127/60 (82) 97 Nasal Cannula 2 02/11/17 18:45 74 16 127/61 (83) 98 Nasal Cannula 2 02/11/17 18:30 72 16 121/61 (81) 98 Nasal Cannula 2 02/11/17 18:15 69 16 118/60 (79) 98 Nasal Cannula 2 02/11/17 18:09 97.4 71 16 126/63 (84) 94 Nasal Cannula 2 02/11/17 16:00 96.9 70 20 163/83 (109) 97 02/11/17 12:53 18 02/11/17 12:00 97.0 72 19 122/75 (91) 96 I/O 02/11/17 02/11/17 02/11/17 02/12/17 02/12/17 02/12/17 07:00 15:00 23:00 07:00 15:00 23:00 Intake Total 1000 ml 0 ml 1000 ml 2358 ml Output Total 601 ml Balance 1000 ml 0 ml 399 ml 2358 ml Intake Oral 0 ml 0 ml 780 ml IV Total 1000 ml 1578 ml Other 1000 ml Output Urine Total 600 ml Estimated Blood Loss 1 ml # Voids 2 3 (Madeline Waldrop MD R1) Result Diagram: 02/11/17 1200 02/11/17 1200 Objective Remarks O. CONSTITUTIONAL/GEN: pleasant, sitting up in bed, eating breakfast, in NAD EYES: EOM intact. Left periorbital edema and ecchymosis. Denies blurry vision. ENT: Mouth and pharynx normal. NECK: thyroid midline, carotids symmetrical. LUNGS: clear A-P, respiratory effort is normal. CARDIOVASCULAR: RR without murmur or gallop. No significant edema. GI/ABD: soft without masses, without organomegaly. BS + NEURO: No focal deficits. SKIN: color normal, no rashes noted. HEME/LYMPH: no bruising, petechia or significant adenopathy MUSC: Extremities are normal in appearance. PSYCH/MENTAL STATUS: Alert and oriented x 3. (Madeline Waldrop MD R1) A/P Assessment and Plan 51 year old female being admitted with a left orbital floor blowout fracture following a mechanical fall. Maxilofacial surgery consulted. Patient tolerated surgery well yesterday. Discharge Planning Pending surgery (Madeline Waldrop MD R1) Attending Attestation Patient seen and examined. Case reviewed and discussed with the resident team. Agree with plan of care as discussed with me and documented in the resident note. (Charline Lopez MD) Problem List: (1) Fracture of orbital floor ICD Codes: S02.30XA - Fracture of orbital floor, unspecified side, initial encounter for closed fracture Status: Acute Plan: - Maxillofacial CT showing left orbital floor blowout fracture - Consulted oromaxillofacial surgery, Dr. Gonzales. Patient tolerated surgery well yesterday - Pain control with [place] 5/325 prn pain 3-5, Jud 10/325 prn pain 6-10, morphine 4mg IV prn breakthrough pain - Incentive Spirometry (2) Lupus ICD Codes: L93.0 - Discoid lupus erythematosus Status: Chronic Plan: Symptoms stable Continue home Plaquenil (3) Nutrition, metabolism, and development symptoms ICD Codes: R63.8 - Other symptoms and signs concerning food and fluid intake Status: Acute Plan: Fluids: None, patient eating well Electrolytes: WNL Nutrition: soft-diet DVT ppx: b/l SCDs (Madeline Waldrop MD R1) Madeline Waldrop MD R1 Feb 12, 2017 10:14 Charline Lopez MD Feb 12, 2017 14:42
[2017-02-12] MEDS ORDERED: BISACODYL 10 MG SUPP RECTAL PRN (10:15)
[2017-02-12] MEDS ORDERED: LACTULOSE SYRUP 20 GM/30 ML CUP PO PRN (10:15)
[2017-02-12] MEDS ORDERED: DOCUSATE SODIUM 50 MG/SENNA 8.6 MG TAB PO SCH (10:15)
[2017-02-12] MEDS ORDERED: SENNOSIDES 8.6 MG TAB PO PRN (10:15)
[2017-02-12] MEDS ORDERED: MAGNESIUM HYDROXIDE SUSP 30 ML CUP PO PRN (10:15)
[2017-02-12 10:30] VITALS: O2SAT 93
[2017-02-12] MEDS ORDERED: POLYETHYLENE GLYCOL 17 GM PKG PO ONE (11:30)
[2017-02-12 12:00] VITALS: BP 137/76; PULSE 80; RESP 16; TEMP 97.5; O2SAT 95
[2017-02-12] MEDS ORDERED: MSIR15 PO (14:22)
[2017-02-12] MEDS ORDERED: SENN8.6T88 PO (14:22)
[2017-02-12] MEDS ORDERED: HYDR-3366 PO (14:22)
--- NOTE | 2017-02-12 14:24 | HHI.DCPOC ---
Discharge Care Plan Diagnosis: (1) Fracture of orbital floor Goals to Promote Your Health * To prevent worsening of your condition and complications, follow up with your primary care physician within one week after hospital discharge. Directions to Meet Your Goals Take your medications as prescribed Follow your dietary instruction Follow activity as directed Keep your appointments as scheduled Take your immunizations and boosters as scheduled If your symptoms worsen call your PCP, if no PCP go to Urgent Care Center or Emergency Room Smoking is Dangerous to Your Health. Avoid second hand smoke Call the 24-hour hour crisis hotline for domestic abuse at Maverick Luis MD R2 Feb 12, 2017 14:24
[2017-02-12 16:00] VITALS: BP 134/70; PULSE 78; RESP 16; TEMP 97.2; O2SAT 93
--- NOTE | 2017-02-12 17:16 | HHI.PR ---
Subjective Remarks POD 1 s/p reconstruction of left orbital floor fracture with KLS mesh pt seen and examined this am , at bedside aaox3, nad, denies any visual problems, no complaints Objective Vital Signs Date Time Temp Pulse Resp B/P (MAP) Pulse Ox O2 Delivery O2 Flow Rate FiO2 02/12/17 16:00 97.2 78 16 134/70 (91) 93 02/12/17 12:00 97.5 80 16 137/76 (96) 95 02/12/17 08:00 97.5 75 17 130/71 (90) 97 02/12/17 05:00 96.6 70 17 119/67 (84) 93 02/12/17 00:20 97.2 93 17 124/69 (87) 91 02/11/17 20:48 97.6 78 18 116/60 (78) 95 02/11/17 19:35 79 16 131/62 (85) 96 Nasal Cannula 2 02/11/17 19:15 77 16 132/63 (86) 97 Nasal Cannula 2 02/11/17 19:00 75 16 127/60 (82) 97 Nasal Cannula 2 02/11/17 18:45 74 16 127/61 (83) 98 Nasal Cannula 2 02/11/17 18:30 72 16 121/61 (81) 98 Nasal Cannula 2 02/11/17 18:15 69 16 118/60 (79) 98 Nasal Cannula 2 02/11/17 18:09 97.4 71 16 126/63 (84) 94 Nasal Cannula 2 I/O 02/11/17 02/11/17 02/11/17 02/12/17 02/12/17 02/12/17 07:00 15:00 23:00 07:00 15:00 23:00 Intake Total 1000 ml 0 ml 1000 ml 2358 ml 150 ml Output Total 601 ml Balance 1000 ml 0 ml 399 ml 2358 ml 150 ml Intake Oral 0 ml 0 ml 780 ml IV Total 1000 ml 1578 ml 150 ml Other 1000 ml Output Urine Total 600 ml Estimated Blood Loss 1 ml # Voids 2 3 Result Diagram: 02/11/17 1200 02/11/17 1200 Objective Remarks left eye open, perrla, eomi, + good visual acuity, no entrapment noted lower eyelid, wound margins well approximated, hemostatic Assessment and Plan Assessment and Plan POD 1 s/p reconstruction of left orbital floor fracture with KLS mesh ok to d/c to home from oms standpoint f/up [address] Gonzales, [facility] [phone] soft diet sinus precautions - no nose blowing, no closed mouth sneezing, no drinking with straw ice to left face/eye region, 20 min on, 20 min off x 24 hrs. Brock Gonzales [facility] Feb 12, 2017 17:16
== END 2017-02-12 19:11 | disposition home or self-care (01) ==
LOC: NEPC 11:12 → NEDA 14:17 → INTOOBSV 14:17 → N07A 16:18
PROVIDERS: ADMIT Family Medicine; ATTEND Family Medicine
DX: R51 Headache (principal); M25.562 Pain in left knee; M25.512 Pain in left shoulder; W01.0XXA Fall on same level from slipping, tripping and stumbling without subsequent striking against object, initial encounter; Y93.01 Activity, walking, marching and hiking; Z79.899 Other long term (current) drug therapy; S80.212A Abrasion, left knee, initial encounter; R00.0 Tachycardia, unspecified; R60.9 Edema, unspecified; S05.12XA Contusion of eyeball and orbital tissues, left eye, initial encounter; S02.32XA Fracture of orbital floor, left side, initial encounter for closed fracture; M32.9 Systemic lupus erythematosus, unspecified; R63.8 Other symptoms and signs concerning food and fluid intake; Z23 Encounter for immunization
CPT/HCPCS: 00190; 21390; 70450; 70486; 73030; 73564; 80048; 85025; 85610; 85730; 90471; 90714; 93005; 96361; 96374; 96375; 96376; 99285; C1713; G0378; J0360; J0690; J1040; J1100; J2250; J2270; J2405; J2550; J2710; J2930; J3010; J7030; J7050; J7120